=== PATIENT | male | born 1990 | race Caucasian/White ===

== ENCOUNTER 2021-05-02 15:46 | Emergency (ER) | payer OTHER ==
[2021-05-02] MEDS ORDERED: CEPHALEXIN500 M1 PO (16:06)
[2021-05-02] MEDS ORDERED: BACTROBAN OINT22 GM EXT (16:06)
== END 2021-05-02 16:23 | disposition home or self-care (01) ==
LOC: ER1 15:46
DX: S61.011A Laceration without foreign body of right thumb without damage to nail, initial encounter (principal); F17.210 Nicotine dependence, cigarettes, uncomplicated; W26.0XXA Contact with knife, initial encounter
CPT/HCPCS: 99282

== ENCOUNTER 2021-05-27 17:22 | Emergency (ER) | payer OTHER ==
[~2021-05-27 17:22] MED LIST: BACTROBAN OINT22 GM EXT; CEPHALEXIN500 M1 PO
[2021-05-27 20:31] LABS: HEMOGLOBIN 16.3 gm/dl (14.0-17.5); RED BLOOD COUNT 5.75 M/UL (4.20-5.50); WHITE BLOOD COUNT 6.6 K/UL (4.5-11.0)
[2021-05-27 21:05] LABS: BUN/CREATININE RATIO 8 (0-10)
[2021-05-28] MEDS ORDERED: PHENERGAN 25 MG25 M1 PO (04:59)
[2021-05-28 09:15] LABS: HEMOGLOBIN 14.8 gm/dl (14.0-17.5); RED BLOOD COUNT 5.19 M/UL (4.20-5.50); WHITE BLOOD COUNT 7.1 K/UL (4.5-11.0)
[2021-05-28 09:45] LABS: BUN/CREATININE RATIO 9 (0-10)
[2021-05-29 05:09] LABS: HBSAG SCREEN Negative (Negative); HEP A AB, IGM Negative (Negative); HEP B CORE AB, IGM Negative (Negative); HEP C VIRUS AB >11.0 (0.0-0.9)
== END 2021-05-28 13:10 | disposition home or self-care (01) ==
LOC: ER1 17:22
PROVIDERS: Emergency Medicine; Physician Assistant
DX: R10.84 Generalized abdominal pain (principal); R11.2 Nausea with vomiting, unspecified; F17.210 Nicotine dependence, cigarettes, uncomplicated
CPT/HCPCS: 76705; 80053; 80074; 80307; 81001; 83690; 85025; 85610; 87086; 96374; 96375; 99284; J0696; J2550; Q9967